=== PATIENT | female | born 1940 | race Native Hawaiian/Other Pacific Islander ===

== ENCOUNTER 2020-12-10 18:35 | Outpatient (CLI) | payer OTHER, MEDICARE ==
[2020-12-10 20:56] LABS: PLATELET COUNT 276 K/uL (152-353)
[2020-12-10 21:16] LABS: POTASSIUM 4.4 mmol/L (3.6-5.2)
== END 2020-12-10 21:08 | disposition home or self-care (01) ==
LOC: LAB 18:35
PROVIDERS: ATTEND Nurse Practitioner Family
DX: Z00.00 Encounter for general adult medical examination without abnormal findings (principal); Z79.899 Other long term (current) drug therapy; R53.83 Other fatigue; R53.81 Other malaise; I10 Essential (primary) hypertension; J45.909 Unspecified asthma, uncomplicated
CPT/HCPCS: 80053; 80061; 82306; 82607; 84439; 84443; 85027

== ENCOUNTER 2021-02-27 16:54 | Outpatient (CLI) | payer OTHER, MEDICARE | END 2021-02-27 20:01 | disposition home or self-care (01) | LOC: LAB 16:54 | PROVIDERS: ATTEND Nurse Practitioner Family | DX: R30.0 Dysuria (principal) | CPT/HCPCS: 87086; 87088 ==

== ENCOUNTER 2021-03-11 17:55 | Outpatient (CLI) | payer OTHER, MEDICARE | END 2021-03-11 19:56 | disposition home or self-care (01) | LOC: LAB 17:55 | PROVIDERS: ATTEND Nurse Practitioner Family | DX: N39.0 Urinary tract infection, site not specified (principal) | CPT/HCPCS: 87086; 87088 ==